=== PATIENT | female | born 1980 | race Caucasian/White ===

== ENCOUNTER → 2019-08-27 | Outpatient (CLI) | payer BC ==
[~2019-08-27] MED LIST: BUPR-86 PO; DIPH25CA61 PO; GING550C2 PO; IRON PO
== END | disposition home or self-care (01) ==
LOC: STAR 13:33
PROVIDERS: ATTEND Obstetrics & Gynecology Female Pelvic Medicine and Reconstructive Surgery
DX: Z02.9 Encounter for administrative examinations, unspecified (principal)

== ENCOUNTER 2019-09-06 11:47 | Day surgery (SDC) | payer BC ==
[~2019-09-06] VITALS: Ht 154.9 cm; Wt 102.7 kg
[~2019-09-06 11:47] MED LIST changes: +BUPIVACAINE/PF 0.25% ONE
[2019-09-06] MEDS ORDERED: LACTATED RINGERS 1,000 ML IV SCH (11:54)
[2019-09-06] MEDS ORDERED: SCOPOLAMINE PATCH, 1.5MG PATCH.TD72 TD ONE (12:00)
[2019-09-06 12:28] VITALS: BP 139/86
[2019-09-06 12:53] LABS: HCG UR SG 1.021 (1.003-1.030)
[2019-09-06] MEDS ORDERED: MIDAZOLAM 1 MG/ML, 2ML ONE (14:11)
[2019-09-06] MEDS ORDERED: FENTANYL PF 250 MCG/5ML ONE (14:14)
[2019-09-06] MEDS ORDERED: DEXAMETHASONE 4 MG/ML, 1ML ONE (14:15)
[2019-09-06] MEDS ORDERED: KETOROLAC 30 MG/1 ML ONE (14:15)
[2019-09-06] MEDS ORDERED: ONDANSETRON 2MG/ML, 2ML ONE (14:15)
[2019-09-06] MEDS ORDERED: PROPOFOL 10 MG/ML, 20ML ONE (14:15)
[2019-09-06] MEDS ORDERED: CEFAZOLIN 1,000 MG ONE (14:15)
[2019-09-06] MEDS ORDERED: LABETALOL 5MG/ML, 20ML IV PRN (15:30)
[2019-09-06] MEDS ORDERED: OXYcodone 5 MG/5 ML ORAL.SOL UDC PO PRN (15:30)
[2019-09-06] MEDS ORDERED: MEPERIDINE/PF 25MG/ML,1ML IVPush PRN (15:30)
[2019-09-06] MEDS ORDERED: MORPHINE SULFATE 4 MG/ML, 1ML IVPush PRN (15:30)
[2019-09-06] MEDS ORDERED: HALOPERIDOL 5 MG/ML IV PRN (15:30)
[2019-09-06] MEDS ORDERED: FENTANYL PF 100 MCG/2ML IV PRN (15:30)
[2019-09-06] MEDS ORDERED: PROMETHAZINE 25 MG/ML, 1ML IV PRN (15:30)
[2019-09-06] MEDS ORDERED: hydrALAzine 20 MG/ML, 1ML IV PRN (15:30)
[2019-09-06] MEDS ORDERED: HYDROmorphone 2 MG/ML, 1ML IVPush PRN (15:30)
== END 2019-09-06 18:05 | disposition home or self-care (01) ==
LOC: OUT 11:47
PROVIDERS: ATTEND Obstetrics & Gynecology Female Pelvic Medicine and Reconstructive Surgery
DX: N92.1 Excessive and frequent menstruation with irregular cycle (principal); N94.6 Dysmenorrhea, unspecified; N94.10 Unspecified dyspareunia; N84.0 Polyp of corpus uteri; G47.33 Obstructive sleep apnea (adult) (pediatric); F32.9 Major depressive disorder, single episode, unspecified; Z79.899 Other long term (current) drug therapy
CPT/HCPCS: 58120; 81025; 88305; J0690; J1100; J1885; J2250; J2405; J2704; J3010; J3490; J7120